=== PATIENT | female | born 1980 | race Two or more races ===

== ENCOUNTER 2018-02-13 09:30 | Outpatient (CLI) | payer OTHER | END 2018-02-13 09:41 | disposition home or self-care (01) | LOC: RAD 09:30 | DX: J45.998 Other asthma (principal) ==

== ENCOUNTER 2018-02-13 09:47 | Outpatient (CLI) | payer OTHER | END 2018-02-13 14:15 | disposition home or self-care (01) | LOC: EKG 09:47 | DX: R07.89 Other chest pain (principal) ==

== ENCOUNTER 2018-02-13 10:30 | Inpatient (IN) | payer OTHER ==
[~2018-02-13] VITALS: Ht 170.2 cm; Wt 76.7 kg
[2018-02-23] MEDS ORDERED: HYOSCYAMINE0.125 M1 SL (09:15)
[2018-02-23] MEDS ORDERED: CODE1TAB37 PO (09:15)
== END 2018-02-23 09:27 | disposition home or self-care (01) | DRG 743 ==
LOC: O/R 02-20 05:55 → OB/GYN 02-20 05:55 → RECOVERY 02-20 10:30 → EDSTATUS 02-20 10:30 → OB/GYN 02-20 10:30
PROVIDERS: Obstetrics & Gynecology
PROC: 0TJB8ZZ Inspection of Bladder, Via Natural or Artificial Opening Endoscopic (ICD-10-PCS; 2018-02-20)
PROC: 0UT90ZZ Resection of Uterus, Open Approach (ICD-10-PCS; principal; 2018-02-20 08:30)
PROC: 0UT70ZZ Resection of Bilateral Fallopian Tubes, Open Approach (ICD-10-PCS; 2018-02-20 08:30)
DX: D25.1 Intramural leiomyoma of uterus (principal); N92.0 Excessive and frequent menstruation with regular cycle; N81.11 Cystocele, midline; N83.8 Other noninflammatory disorders of ovary, fallopian tube and broad ligament; D25.0 Submucous leiomyoma of uterus; D25.2 Subserosal leiomyoma of uterus; G35 Multiple sclerosis